=== PATIENT | female | born 1985 | race Caucasian/White ===

== ENCOUNTER 2019-05-19 10:50 | Inpatient (IN) | payer MEDICAID ==
[~2019-05-19] VITALS: Ht 165.1 cm; Wt 65.8 kg
[2019-05-19] MEDS ORDERED: D5LR 1,000 ML IV SCH (11:45)
[2019-05-19] MEDS ORDERED: NALBUPHINE HCL 10 MG/ML AMP IVP PRN ×2 (11:45→15:00)
[2019-05-19] MEDS ORDERED: ONDANSETRON HCL 4 MG/2 ML VIAL IVP PRN (12:00)
[2019-05-19 12:11] LABS: BASOPHILS % (AUTO) 0.1 % (0.0-2.0); EOSINOPHILS # (AUTO) 0.1 K/uL (0.0-0.4); EOSINOPHILS % (AUTO) 0.9 % (0.0-4.0); HEMATOCRIT 29.6 % (36-48); HEMOGLOBIN 10.4 g/dL (12.0-16.0); LYMPHOCYTES # (AUTO) 0.9 K/uL (1.0-5.5); MEAN CORPUSCULAR HEMOGLOBIN 35 pg (27-31); MEAN CORPUSCULAR HGB CONC 35 % (32-36); MEAN CORPUSCULAR VOLUME 99 fL (79.0-98.0); MONOCYTES # (AUTO) 0.3 K/uL (0.0-1.0); MONOCYTES % (AUTO) 3.3 % (1.7-9.3); NEUTROPHILS # (AUTO) 9.4 K/uL (1.8-7.7); NEUTROPHILS % (AUTO) 87.7 % (40.0-70.0); PLATELET COUNT (AUTO) 172 K/uL (130-430); RED CELL DISTRIBUTION WIDTH 14.4 % (9.0-15.0); WHITE BLOOD COUNT (AUTO) 10.7 K/uL (4.8-10.8)
[2019-05-19] MEDS ORDERED: OXYTOCIN/0.9 % SODIUM CHLORIDE 1,000 ML IV SCH (12:11)
[2019-05-19] MEDS ORDERED: OXYTOCIN 30 UNIT in LR 1,000 ML IV SCH (12:15)
[2019-05-19] MEDS ORDERED: OXYTOCIN/0.9 % SODIUM CHLORIDE 1,000 ML IV ONE (14:07)
[2019-05-19] MEDS ORDERED: DERMOPLAST SPRAY TP PRN (14:15)
[2019-05-19] MEDS ORDERED: DOCUSATE SODIUM 100 MG CAPSULE PO PRN (14:15)
[2019-05-19] MEDS ORDERED: MEPERIDINE HCL/PF 50 MG/ML AMP IVP PRN (14:15)
[2019-05-19] MEDS ORDERED: OXYCODONE/ACETAMINOPHEN 5-325 TABLET PO PRN (14:15)
[2019-05-19] MEDS ORDERED: SENNOSIDES/DOCUSATE SODIUM 1 TAB TABLET(SENOKOT-S) PO PRN (14:15)
[2019-05-19] MEDS ORDERED: LANOLIN 7 GM OINT. TP PRN (14:15)
[2019-05-19] MEDS ORDERED: OXYTOCIN 10 UNIT/ML VIAL IM ONE (15:00)
[2019-05-19] MEDS ORDERED: METHYLERGONOVINE MALEATE 0.2 MG/ML AMP IM ONE (15:00)
[2019-05-19] MEDS ORDERED: OXYTOCIN 10 UNIT/ML VIAL ONE (15:14)
[2019-05-19] MEDS ORDERED: METHYLERGONOVINE MALEATE 0.2 MG/ML AMP ONE (15:18)
[2019-05-19] MEDS ORDERED: LIDOCAINE PF 1% 30ML(POUR BTL) INJ ONE (16:45)
[2019-05-19] MEDS ORDERED: MINERAL OIL 30 ML UDC PO ONE (16:45)
[2019-05-19 17:20] VITALS: BP_SYST 114
[2019-05-19] MEDS: IBUPROFEN 800 MG TABLET PO PRN (18:58)
[2019-05-19] MEDS ORDERED: TEMAZEPAM 15 MG CAPSULE PO PRN (21:00)
[2019-05-20] MEDS: IBUPROFEN 800 MG TABLET PO PRN (00:25)
[2019-05-20 05:26] LABS: BASOPHILS % (AUTO) 0.2 % (0.0-2.0); EOSINOPHILS % (AUTO) 0.5 % (0.0-4.0); HEMATOCRIT 23.3 % (36-48); HEMOGLOBIN 8.2 g/dL (12.0-16.0); LYMPHOCYTES # (AUTO) 0.9 K/uL (1.0-5.5); MEAN CORPUSCULAR HEMOGLOBIN 35 pg (27-31); MEAN CORPUSCULAR HGB CONC 35 % (32-36); MEAN CORPUSCULAR VOLUME 99 fL (79.0-98.0); MONOCYTES # (AUTO) 0.3 K/uL (0.0-1.0); MONOCYTES % (AUTO) 4.6 % (1.7-9.3); NEUTROPHILS # (AUTO) 4.9 K/uL (1.8-7.7); NEUTROPHILS % (AUTO) 79.7 % (40.0-70.0); PLATELET COUNT (AUTO) 136 K/uL (130-430); RED BLOOD CELL COUNT(AUTO) 2.36 MIL/uL (4.2-6.2); RED CELL DISTRIBUTION WIDTH 13.8 % (9.0-15.0); WHITE BLOOD COUNT (AUTO) 6.2 K/uL (4.8-10.8)
[2019-05-20] MEDS ORDERED: MEPERIDINE HCL/PF 50 MG/ML AMP IVP PRN (09:30)
[2019-05-20] MEDS ORDERED: DOCUSATE SODIUM 100 MG CAPSULE PO PRN (09:30)
[2019-05-20] MEDS ORDERED: IBUPROFEN 800 MG TABLET PO PRN (09:30)
[2019-05-20] MEDS ORDERED: OXYCODONE/ACETAMINOPHEN 5-325 TABLET PO PRN (09:30)
[2019-05-20] MEDS ORDERED: LANOLIN 7 GM OINT. TP PRN (09:30)
[2019-05-20] MEDS ORDERED: SENNOSIDES/DOCUSATE SODIUM 1 TAB TABLET(SENOKOT-S) PO PRN (09:30)
[2019-05-20 09:56] VITALS: BP_SYST 103
[2019-05-20] MEDS ORDERED: PROPOFOL 200MG/ 20ML VIAL (DIPRIVAN) IV ONE (10:00)
[2019-05-20] MEDS ORDERED: CEFAZOLIN 1 GM IVPB PREMIX 50 ML IV ONE (10:00)
[2019-05-20] MEDS ORDERED: NS IRRIG SOLN 1000 ML IR ONE (10:00)
[2019-05-20] MEDS ORDERED: LR 1,000 ML IV.SOLN IV ONE (10:00)
[2019-05-20] MEDS ORDERED: SEVOFLURANE 15 MIN GAS INH ONE (10:00)
[2019-05-20] MEDS ORDERED: fentaNYL CITRATE/PF 100 MCG/2 ML AMP ONE ×2 (10:00→10:36)
[2019-05-20] MEDS ORDERED: MIDAZOLAM HCL 5 MG/ML VIAL (VERSED) IV ONE (10:00)
[2019-05-20] MEDS ORDERED: fentaNYL CITRATE/PF 100 MCG/2 ML AMP IVP PRN (10:15)
[2019-05-20] MEDS ORDERED: KETOROLAC TROMETHAMINE 30 MG VIAL IVP PRN (10:15)
[2019-05-20] MEDS ORDERED: ONDANSETRON HCL 4 MG/2 ML VIAL IVP PRN (10:15)
[2019-05-20] MEDS: fentaNYL CITRATE/PF 100 MCG/2 ML AMP IVP PRN ×2 (10:27→10:40)
[2019-05-20] MEDS ORDERED: LR 500 ML IV ONE (11:00)
[2019-05-20] MEDS ORDERED: TEMAZEPAM 15 MG CAPSULE PO PRN (21:00)
== END 2019-05-20 16:10 | disposition home or self-care (01) | DRG 541 ==
LOC: SPU 10:50
PROVIDERS: ADMIT Specialist; ATTEND Specialist
PROC: 10E0XZZ Delivery of Products of Conception, External Approach (ICD-10-PCS; principal; 2019-05-19)
PROC: 10907ZC Drainage of Amniotic Fluid, Therapeutic from Products of Conception, Via Natural or Artificial Opening (ICD-10-PCS; 2019-05-19)
PROC: 3E033VJ Introduction of Other Hormone into Peripheral Vein, Percutaneous Approach (ICD-10-PCS; 2019-05-19)
PROC: 0UB70ZZ Excision of Bilateral Fallopian Tubes, Open Approach (ICD-10-PCS; 2019-05-20)
DX: O80 Encounter for full-term uncomplicated delivery (principal); Z30.2 Encounter for sterilization; Z37.0 Single live birth; Z3A.37 37 weeks gestation of pregnancy
CPT/HCPCS: 36415; 81002-TC; 85025; 86886; 86900; 86901; 88302; J0690; J2001; J2210; J2250; J2300; J2405; J2590; J2704; J3010; J7120

== ENCOUNTER 2022-12-29 23:01 | Emergency (ER) | payer MEDICAID ==
[~2022-12-29] VITALS: Ht 165.1 cm; Wt 49.9 kg
[2022-12-29 23:25] VITALS: BP_SYST 129
[2022-12-29] MEDS ORDERED: KETOROLAC TROMETHAMINE 60 MG/2 ML VIAL IM ONE (23:45)
[2022-12-29] MEDS ORDERED: AUG875 PO (23:58)
[2022-12-29] MEDS ORDERED: TRAM50TA2 PO (23:58)
[2022-12-29] MEDS ORDERED: LIDO15SO6 MM (23:58)
[2022-12-29] MEDS ORDERED: IBUP-1969 PO (23:58)
[2022-12-30 00:09] VITALS: BP_SYST 129
[2022-12-30 00:37] LABS: STREPTOCOCCUS A SCREEN (RAPID) NEGATIVE (NEGATIVE)
== END 2022-12-30 00:09 | disposition home or self-care (01) ==
LOC: SED 23:01
DX: J10.1 Influenza due to other identified influenza virus with other respiratory manifestations (principal); H66.93 Otitis media, unspecified, bilateral; R07.0 Pain in throat; Z79.899 Other long term (current) drug therapy; Z20.822 Contact with and (suspected) exposure to COVID-19
CPT/HCPCS: 99283; 87426; 86403; 36415; 87081; 87804 ×2; 96372; J1885

== ENCOUNTER 2023-12-07 15:57 | Emergency (ER) | payer MEDICAID ==
[~2023-12-07] VITALS: Ht 165.1 cm; Wt 52.2 kg
[~2023-12-07 15:57] MED LIST: AUG875 PO; CYCL10TA24 PO; IBUP-1969 PO; LIDO15SO3 MM; LIDOINT TP; TRAM50TA2 PO
[2023-12-07 16:00] VITALS: BP_SYST 118; PULSE 89; RESP 18; TEMP 97.9; O2SAT 96
== END 2023-12-07 19:53 | disposition left against medical advice (07) ==
LOC: SED 15:57
DX: H92.02 Otalgia, left ear (principal); Z53.21 Procedure and treatment not carried out due to patient leaving prior to being seen by health care provider
CPT/HCPCS: 99281